=== PATIENT | female | born 2000 | race Caucasian/White ===

== ENCOUNTER 2024-08-01 12:34 | Emergency (ER) | payer OTHER ==
[2024-08-01 12:49] VITALS: BP 109/75; PULSE 102; RESP 18; TEMP 98.4; BMI 24.9
[2024-08-01 13:49] LABS: BASO % 0.2 % (0-2.0); EOS % 0.3 % (0-4.5); HEMATOCRIT 40.2 % (32.4-45.2); HEMOGLOBIN 13.1 GM/dL (10.7-15.3); LYMPH % 23.2 % (8-40); MCH 27.6 pg (25.7-33.7); MCHC 32.6 g/dl (32.0-36.0); MEAN CELL VOLUME 84.7 fl (80-96); MEAN PLT VOLUME 8.6 fl (7.5-11.1); MONO % 5.8 % (3.8-10.2); NEUT % 70.5 % (42.8-82.8); PLATELET COUNT 312 10^3/uL (134-434); RBC 4.75 M/mm3 (3.60-5.2); RDW 15.8 % (11.6-15.6); WHITE BLOOD COUNT 7.3 K/mm3 (4.0-10.0)
[2024-08-01 13:54] LABS: EPI CELLS >36 /uL (0-25.1); HYALINE CASTS 9 /uL (0-3.1); URINE APPEARANCE TURBID; URINE BILIRUBIN 2+ (NEGATIVE); URINE COLOR ORANGE; URINE GLUCOSE (UA) NEGATIVE (NEGATIVE); URINE KETONE TRACE (NEGATIVE); URINE LEUK ESTERASE 1+ (NEGATIVE); URINE NITRITE POSITIVE (NEGATIVE); URINE PROTEIN 3+ (NEGATIVE); URINE RBC 3800 /uL (0-23.9); URINE UROBILINOGEN 0.2 mg/dL (0.2-1.0); URINE WBC 316 /uL (0-25.8)
[2024-08-01 14:02] LABS: HCG,QUALITATIVE URINE Negative
[2024-08-01 14:08] LABS: CALCIUM 9.6 mg/dL (8.5-10.1)
[2024-08-01 14:09] LABS: ALBUMIN 4.1 g/dl (3.4-5.0); BLOOD UREA NITROGEN 11.4 mg/dL (7-18)
[2024-08-01 14:13] LABS: BILIRUBIN,TOTAL 0.8 mg/dL (0.2-1)
[2024-08-01 14:16] LABS: URINE BACTERIA 1148 /uL (0-1359)
[2024-08-01] MEDS: SODIUM CHLORIDE 1,000 ML IV STA (15:44)
[2024-08-01] MEDS ORDERED: CEFTRIAXONE 1 G/50 ML PREMIX 50 ML IVPB ONE (15:46)
[2024-08-01] MEDS: CEFTRIAXONE 1 GM in DEXTROSE 5%-WATER - 100 ML IVPB ONE (16:06)
== END 2024-08-01 17:09 | disposition home or self-care (01) ==
LOC: JER 12:34
PROC: 3E03329 Introduction of Other Anti-infective into Peripheral Vein, Percutaneous Approach (ICD-10-PCS; principal; 2024-08-01)
PROC: 3E0337Z Introduction of Electrolytic and Water Balance Substance into Peripheral Vein, Percutaneous Approach (ICD-10-PCS; 2024-08-01)
DX: N39.0 Urinary tract infection, site not specified (principal); R10.30 Lower abdominal pain, unspecified; M54.9 Dorsalgia, unspecified; K59.00 Constipation, unspecified
CPT/HCPCS: 36415; 74176-TC; 80053; 81003; 84703; 85025; 87086; 99284-25